=== PATIENT | female | born 1975 | race Caucasian/White ===

== ENCOUNTER 2017-10-28 15:31 | Inpatient (IN) | payer MEDICARE, OTHER ==
[2017-10-28] MEDS: ONDANSETRON 4 MG INJ IV ×2 (16:48→18:24)
[2017-10-28] MEDS: HYDROmorphONE 1 MG/5 ML IV SYRINGE IV (16:49)
[2017-10-28] MEDS: SOD CHLORIDE 0.9% 500 ML IV (16:50)
[2017-10-28 17:30] LABS: ADD MAN DIFF? NO
[2017-10-28 17:35] LABS: ABNORMAL IP MESSAGE 1; BASOPHILS % 0.3 % (0.0-2.0); HEMATOCRIT 31.6 % (37.0-47.0); HEMOGLOBIN 11.1 g/dl (12.0-16.0); LYMPHOCYTES # 3.4 10^3/ul (0.8-2.9); LYMPHOCYTES % 34.4 % (15.0-51.0); MEAN CORPUSCULAR HEMOGLOBIN 35.8 pg (29.0-33.0); MEAN CORPUSCULAR HGB CONC 35.1 g/dl (32.0-37.0); MEAN CORPUSCULAR VOLUME 101.9 fl (82.0-101.0); MEAN PLATELET VOLUME 9.8 fl (7.4-10.4); MONOCYTES % 10.5 % (0.0-11.0); NEUTROPHIL # 5.3 10^3/ul (1.6-7.5); NEUTROPHILS % 54.6 % (39.0-77.0); PLATELET COUNT 74 10^3/UL (140-415); RED CELL DISTRIBUTION WIDTH 17.2 % (11.5-14.5)
[2017-10-28 17:35] LABS: WHITE BLOOD COUNT 9.8 10^3/ul (4.8-10.8)
[2017-10-28 17:48] LABS: POSITIVE DIFF @See below
[2017-10-28 17:50] LABS: INR 1.14; PROTIME 14.8 Sec (11.9-14.9); PT RATIO 1.2
[2017-10-28 17:51] LABS: PARTIAL THROMBOPLASTIN TIME 29.2 Sec (25.0-35.0)
[2017-10-28 17:54] LABS: ALANINE AMINOTRANSFERASE 103 IU/L (13-69); ALBUMIN 3.6 g/dl (3.3-4.9); ALBUMIN/GLOBULIN RATIO 0.97; ALKALINE PHOSPHATASE 110 IU/L (42-121); ANION GAP 13 (8-16); ASPARTATE AMINO TRANSFERASE 159 IU/L (15-46); BILIRUBIN,INDIRECT 0.2 mg/dl (0-1.1); BILIRUBIN,TOTAL 0.2 mg/dl (0.2-1.3); BLOOD UREA NITROGEN 9 mg/dl (7-20); CALCIUM 8.6 mg/dl (8.4-10.2); CARBON DIOXIDE 24 mmol/L (21-31); CHLORIDE 108 mmol/L (97-110); CREATININE 0.61 mg/dl (0.44-1.00); GLUCOSE 102 mg/dl (70-220); LIPASE 115 U/L (23-300); POTASSIUM 3.9 mmol/L (3.5-5.1); SODIUM 141 mmol/L (135-144); TOTAL PROTEIN 7.3 g/dl (6.1-8.1)
[2017-10-28] MEDS ORDERED: NACL 0.9% 3 ML SYG IV (18:00)
[2017-10-28] MEDS ORDERED: morphine 2 MG INJ IV (18:00)
[2017-10-28] MEDS ORDERED: BISACODYL (EC) 5 MG TAB PO (18:00)
[2017-10-28] MEDS ORDERED: oxyCODONE 5 MG TAB PO (18:00)
[2017-10-28] MEDS ORDERED: MAGNESIUM HYDROXIDE 30ML CUP PO (18:00)
[2017-10-28] MEDS ORDERED: LORAZEPAM 0.5 MG TAB PO (18:00)
[2017-10-28] MEDS ORDERED: FUROSEMIDE 40 MG INJ IV (18:00)
[2017-10-28] MEDS ORDERED: ACETAMINOPHEN 325 MG TAB PO (18:00)
[2017-10-28] MEDS ORDERED: DOCUSATE SODIUM 100 MG CAP PO (18:00)
[2017-10-28 18:05] LABS: TROPONIN-I < 0.012 ng/ml (0.00-0.12)
[2017-10-28] MEDS ORDERED: hydrALAzine 20 MG INJ IV (18:30)
[2017-10-28] MEDS ORDERED: SOD CHLORIDE 0.9% 100 ML (19:50)
[2017-10-28] MEDS ORDERED: IOHEXOL 100 ML (19:50)
[2017-10-28] MEDS ORDERED: IOHEXOL 350MG/ML 50 ML BTL (19:50)
[2017-10-28] MEDS: ENOXAPARIN 80 MG/0.8 ML SYG SC (21:58)
[2017-10-28] MEDS: NAPROXEN 500 MG TAB PO (22:09)
[2017-10-29] MEDS ORDERED: IOHEXOL 0 ML (07:53)
[2017-10-29] MEDS ORDERED: SOD CHLORIDE 0.9% 100 ML (07:53)
[2017-10-29] MEDS: ENOXAPARIN 80 MG/0.8 ML SYG SC (08:59)
[2017-10-29] MEDS: HEPARIN (100 UNITS/ML) 5 ML SYG CATHETER (10:17)
== END 2017-10-29 10:30 | disposition left against medical advice (07) | DRG 300 ==
LOC: MS2 20:10 → E/R 15:31 → MS2 17:40
DX: I82.621 Acute embolism and thrombosis of deep veins of right upper extremity (principal); C77.3 Secondary and unspecified malignant neoplasm of axilla and upper limb lymph nodes; D69.59 Other secondary thrombocytopenia; C50.911 Malignant neoplasm of unspecified site of right female breast; G89.29 Other chronic pain; I97.2 Postmastectomy lymphedema syndrome; Z53.21 Procedure and treatment not carried out due to patient leaving prior to being seen by health care provider; Z90.11 Acquired absence of right breast and nipple
CPT/HCPCS: 71045; 80053; 83690; 84484; 85025; 85610; 85730; 93005; 93971; 96374; 96375; 96376; 99285-25